=== PATIENT | female | born 1950 | race Caucasian/White ===

== ENCOUNTER 2018-01-27 06:36 | Inpatient (IN) | payer OTHER ==
[~2018-01-27] VITALS: Ht 162.6 cm; Wt 66.2 kg
[~2018-01-27 06:36] MED LIST: ANASTROZOLE1 MG PO; METFORMIN HCL500 MG PO; PANADOL EXTRA500 MG PO; SYNTHROID112 MCG PO
== END 2018-01-29 13:15 | disposition home or self-care (01) | DRG 583 ==
LOC: CIR.AMB 06:36 → O/R 15:51 → SURH 15:51 → CIR.AMB 18:59 → SURH 01-29 13:15
PROVIDERS: Plastic Surgery
PROC: 0KXF0Z5 Transfer Right Trunk Muscle, Latissimus Dorsi Myocutaneous Flap, Open Approach (ICD-10-PCS; 2018-01-27)
PROC: 0HUT0JZ Supplement Right Breast with Synthetic Substitute, Open Approach (ICD-10-PCS; principal; 2018-01-27 07:00)
DX: C50.912 Malignant neoplasm of unspecified site of left female breast (principal); Z90.11 Acquired absence of right breast and nipple

== ENCOUNTER 2018-02-21 16:12 | Outpatient (CLI) | payer OTHER | END 2018-02-21 16:20 | disposition home or self-care (01) | LOC: SONOGRAMA 16:12 | DX: L03.311 Cellulitis of abdominal wall (principal); R92.0 Mammographic microcalcification found on diagnostic imaging of breast ==

== ENCOUNTER 2018-02-24 08:31 | Inpatient (IN) | payer OTHER ==
[~2018-02-24] VITALS: Ht 162.6 cm; Wt 66.2 kg
== END 2018-03-04 15:54 | disposition home or self-care (01) | DRG 920 ==
LOC: ER 08:31 → EDBD 08:31 → ER 09:17 → SURG 10:19 → SEC-K 10:19 → O/R 14:36 → SURG 19:33
PROVIDERS: Plastic Surgery
PROC: 0H9T30Z Drainage of Right Breast with Drainage Device, Percutaneous Approach (ICD-10-PCS; principal; 2018-02-24 14:15)
DX: L76.34 Postprocedural seroma of skin and subcutaneous tissue following other procedure (principal); L03.313 Cellulitis of chest wall; Z90.11 Acquired absence of right breast and nipple; C50.811 Malignant neoplasm of overlapping sites of right female breast

== ENCOUNTER 2018-05-15 07:40 | Day surgery (SDC) | payer OTHER ==
[~2018-05-15] VITALS: Ht 162.6 cm; Wt 65.8 kg
== END 2018-05-15 20:00 | disposition home or self-care (01) ==
LOC: ER 07:40 → EDSTATUS 11:00 → SEC-K 11:31 → O/R 11:31 → ER 11:31 → CIR.AMB 12:36 → O/R 13:31 → SEC-K 13:31 → O/R 13:31 → CIR.AMB 20:00
DX: T85.49XA Other mechanical complication of breast prosthesis and implant, initial encounter (principal); Z90.11 Acquired absence of right breast and nipple